=== PATIENT | male | born 1945 | race Asian ===

== ENCOUNTER 2017-12-23 14:50 | Emergency (ER) | payer OTHER, BC ==
[2017-12-23 15:04] VITALS: BP 129/73; PULSE 93; TEMP 98.3; BMI 23.8
[2017-12-23] MEDS ORDERED: SODIUM CHLORIDE 1,000 ML IV STA (16:46)
--- NOTE | 2017-12-23 16:56 | PDOC ---
History of Present Illness - General Chief Complaint: Pain Stated Complaint: PAIN Time Seen by Provider: 12/23/17 16:35 - History of Present Illness Initial Comments: 12/23/17 16:50 72 year old male with a hx of HTN, HLD, borderline DM, BPH presents for 8 days of constipation and nausea/vomiting. He states that his abdomen was very distended and tender for two days, at which point he self-induced vomiting, which helped alleviate some of his pain. He states that the pain and distention returned. He called his PCP who recommended milk of magnesia, which he reports makes him leak stool. States that he passes gas infrequently and has a lot of upper GI gas. He has little PO intake over the last week and states that he has been drinking water. Denies chest pain, SOB, nausea, vomiting, diarrhea, fevers , chills. Last Colonoscopy: never Allergies: none Surgeries: Appendectomy 1991 Smoking: never Alcohol: never PMD: Dr. Villagran Past History - Past Medical History Allergies/Adverse Reactions: Allergies Allergy/AdvReac Type Severity Reaction Status Date / Time No Known Allergies Allergy Verified 04/08/13 23:04 Home Medications: Ambulatory Orders No Home Medications 0 dose .ROUTE UTDICT 04/08/13 Aspirin Coated [Ecotrin -] 81 mg PO DAILY #0 tablet.ec 04/11/13 Azithromycin [Zithromax Tri-Jhon (3 DAYS) -] 500 mg PO DAILY #3 tablet 04/11/13 Docusate Sodium [Colace -] 100 mg PO DAILY #30 capsule 12/23/17 Ondansetron HCl [Zofran] 4 mg PO 14 PRN #14 tablet 12/23/17 HTN: Yes - Surgical History Appendectomy: Yes - Suicide/Smoking/Psychosocial Hx Smoking Status: No Smoking History: Never smoked Have you smoked in the past 12 months: No If you are a former smoker, when did you quit?: until 1991 Hx Alcohol Use: No Drug/Substance Use Hx: No Substance Use Type: None Review of Systems - Review of Systems Able to Perform ROS?: Yes Is the patient limited Moldovan proficient: Yes Constitutional: No: Chills, Fever Respiratory: No: Cough, Shortness of Breath *Physical Exam - Vital Signs Last Vital Signs Temp Pulse Resp BP Pulse Ox 98.3 F 93 H 16 129/73 99 12/23/17 14:55 12/23/17 14:55 12/23/17 14:55 12/23/17 14:55 12/23/17 14:55 ED Treatment Course - LABORATORY CBC & Chemistry Diagram: 12/23/17 17:00 12/23/17 17:00 - RADIOLOGY Radiology Studies Ordered: Category Date Time Status ABDOMEN & PELVIS CT WITH CONTR [CT] Stat CT Scan 12/23/17 16:49 Ordered Medical Decision Making - Medical Decision Making 12/23/17 17:31 72 year old male with a hx of HTN, HLD, borderline DM, BPH presents with 1 week of constipation, n/v suspect for acute SBO -cbc, cmp, ekg, INR -CT abdomen/pelvis -will re-evaluate 12/23/17 18:50 -labs wnl -If CT negative, will do PO trial and d/c home with referral to GI *DC/Admit/Observation/Transfer Diagnosis at time of Disposition: Nausea & vomiting - Discharge Dispostion Disposition: HOME Condition at time of disposition: Stable Decision to Admit order: No - Prescriptions Prescriptions: Docusate Sodium [Colace -] 100 mg PO DAILY #30 capsule Ondansetron HCl [Zofran] 4 mg PO 14 PRN #14 tablet PRN Reason: Nausea - Referrals Referrals: Heber Villagran MD [Primary Care Provider] - 1 week Jas Cortez MD [Staff Physician] - - Patient Instructions Additional Instructions: You were seen in the hospital for abdominal pain and distention Your blood tests were all normal Your CAT scan did not show evidence of bowel obstruction. Your CT scan did show an abnormality on your kidney. You need to follow up with your primary care physician for possible MRI or CT scan. Please make an appointment with your primary care physician within 1 week of discharge Please make an appointment with Dr. Cortez, a farmworker cranberry, within 1 week of discharge If your symptoms get worse or you experience more nausea, vomiting, or abdominal pain, please return to the emergency room immediately. - Post Discharge Activity
[2017-12-23 17:16] LABS: BASO % 0.8 % (0-2.0); EOS % 4.2 % (0-4.5); HEMATOCRIT 40.3 % (35.4-49); HEMOGLOBIN 13.6 GM/dL (11.7-16.9); LYMPH % 28.6 % (8-40); MCH 30.1 pg (25.7-33.7); MCHC 33.8 g/dl (32.0-35.9); MEAN CELL VOLUME 89.2 fl (80-96); MEAN PLT VOLUME 9.1 fl (7.5-11.1); MONO % 7.4 % (3.8-10.2); PLATELET COUNT 248 K/MM3 (134-434); RBC 4.52 M/mm3 (4.00-5.60); RDW 12.9 % (11.9-15.9); WHITE BLOOD COUNT 9.4 K/mm3 (4.0-10.0)
[2017-12-23 17:35] LABS: INR 1.03 (0.82-1.09); PROTHROMBIN TIME (PATIENT) 11.6 SEC (9.7-13.0)
[2017-12-23 17:45] LABS: ALBUMIN 4.1 g/dl (3.4-5.0); ANION GAP 7 (8-16); BILIRUBIN,TOTAL 0.5 mg/dL (0.2-1.0); BLOOD UREA NITROGEN 12 mg/dL (7-18); CALCIUM 8.6 mg/dL (8.5-10.1); CHLORIDE 106 mmol/L (98-107); CO2 28 mmol/L (21-32); CREATININE 1.3 mg/dL (0.7-1.3); GLUCOSE,RANDOM 99 mg/dL (74-106); POTASSIUM 4.3 mmol/L (3.5-5.1); SGOT/AST 26 U/L (15-37); SGPT/ALT 41 U/L (12-78); SODIUM 141 mmol/L (136-145)
[2017-12-23 17:46] LABS: TOT PROT 7.5 g/dl (6.4-8.2)
[2017-12-23 17:47] LABS: ALK PHOS 80 U/L (45-117)
--- NOTE | 2017-12-23 20:45 | PDOC ---
*Physical Exam - Vital Signs Last Vital Signs Temp Pulse Resp BP Pulse Ox 98.3 F 93 H 16 129/73 99 12/23/17 14:55 12/23/17 14:55 12/23/17 14:55 12/23/17 14:55 12/23/17 14:55 ED Treatment Course - LABORATORY CBC & Chemistry Diagram: 12/23/17 17:00 12/23/17 17:00 - ADDITIONAL ORDERS Additional order review: Laboratory Results 12/23/17 12/23/17 17:00 17:00 PT with INR 11.60 INR 1.03 Sodium 141 Potassium 4.3 Chloride 106 Carbon Dioxide 28 Anion Gap 7 L BUN 12 D Creatinine 1.3 Creat Clearance w eGFR 54.11 Random Glucose 99 Calcium 8.6 Total Bilirubin 0.5 D AST 26 D ALT 41 D Alkaline Phosphatase 80 D Total Protein 7.5 Albumin 4.1 12/23/17 17:00 RBC 4.52 MCV 89.2 MCHC 33.8 RDW 12.9 MPV 9.1 Neutrophils % 59.0 D Lymphocytes % 28.6 D Monocytes % 7.4 Eosinophils % 4.2 D Basophils % 0.8 - Medications Given in the ED: ED Medications Discontinued Medications Generic Name Dose Route Start Last Admin Trade Name Freq PRN Reason Stop Dose Admin Sodium Chloride 1,000 mls @ 1,000 mls/hr 12/23/17 16:46 12/23/17 17:05 Normal Saline - IV 12/23/17 17:45 1,000 mls/hr ASDIR STA Administration Medical Decision Making - Medical Decision Making 12/23/17 20:[address] Laguerre. Patient is 72 year old male with a hx of HTN , HLD, borderline DM, BPH presents for 8 days of constipation and nausea/ vomiting. Patient is now asking to eat. Labs reviewed, normal. EKG reviewed, shows normal sinus rhythm with 1st degree block (MT - 214). No st elevations/ depressions. Normal QTc. Normal axis. CT scan normal with possible mass on kidney. Patient informed of result, told to follow up with PCP and possible MRI/CT. Pending lactic acid ordered by primary team. 12/23/17 21:30 Lactic acid normal. Tolerating PO. Will discharge home. *DC/Admit/Observation/Transfer Diagnosis at time of Disposition: Nausea & vomiting - Discharge Dispostion Disposition: HOME Condition at time of disposition: Stable - Referrals Referrals: Heber Villagran MD [Primary Care Provider] - 1 week Jas Cortez MD [Staff Physician] - - Patient Instructions Additional Instructions: You were seen in the hospital for abdominal pain and distention Your blood tests were all normal Your CAT scan did not show evidence of bowel obstruction. Your CT scan did show an abnormality on your kidney. You need to follow up with your primary care physician for possible MRI or CT scan. Please make an appointment with your primary care physician within 1 week of discharge Please make an appointment with Dr. Cortez, a airdox fitter, within 1 week of discharge If your symptoms get worse or you experience more nausea, vomiting, or abdominal pain, please return to the emergency room immediately. - Post Discharge Activity
--- NOTE | 2017-12-24 08:49 | EKG ---
Test Reason : Blood Pressure : / mmHG Vent. Rate : 072 BPM Atrial Rate : 072 BPM P-R Int : 214 ms QRS Dur : 078 ms QT Int : 394 ms P-R-T Axes : 062 000 060 degrees QTc Int : 431 ms SINUS RHYTHM WITH 1ST DEGREE A-V BLOCK WHEN COMPARED WITH ECG OF 08-APR-2013 21:54, DE INTERVAL HAS INCREASED Confirmed by BILLIE MATOS MD ([id number]) on 12/24/2017 8:48:40 AM Referred By: Confirmed By:BILLIE MATOS MD
== END 2017-12-23 21:44 | disposition home or self-care (01) ==
LOC: JER 14:50
PROC: 3E0337Z Introduction of Electrolytic and Water Balance Substance into Peripheral Vein, Percutaneous Approach (ICD-10-PCS; principal; 2017-12-23)
DX: R10.84 Generalized abdominal pain (principal); R14.0 Abdominal distension (gaseous); E78.00 Pure hypercholesterolemia, unspecified; E78.5 Hyperlipidemia, unspecified; E11.9 Type 2 diabetes mellitus without complications; N40.0 Benign prostatic hyperplasia without lower urinary tract symptoms
CPT/HCPCS: 36415; 74176-TC; 80053; 83605; 85025; 85610; 93005; 93010; 99282-25; J7030

== ENCOUNTER 2019-03-15 07:04 | Day surgery (SDC) | payer OTHER, BC ==
[2019-03-14 13:37] VITALS: BMI 24.7
[2019-03-15 08:51] VITALS: TEMP 97.5
[2019-03-15 10:16] VITALS: BP 121/75; PULSE 66
--- NOTE | 2019-03-16 15:57 | PATH ---
Surgical Pathology Report Patient Name: CATRACHITA FRANKLIN [facility]. Rec. #: [id number] /Age/Gender: 1945 (Age: 73) / M Account: [id number] Location: [facility]-ENDOSCOPY Taken: 03/15/2019 Received: 03/15/2019 Reported: 03/16/2019 Physicians: Angel Ley M.D. Specimen(s) Received RECTAL POLYP Clinical History Screening colonoscopy Postoperative diagnosis: Small bowel diverticulosis, diverticulosis of colon, rectal polyp Final Diagnosis RECTAL POLYP, POLYPECTOMY: HYPERPLASTIC POLYP. Electronically Signed Caitlin Duncan M.D. Gross Description Received in formalin, labeled "rectal polyp" is a brito, irregular portion of soft tissue measuring 0.3 cm. in greatest dimension. The specimen is submitted in toto in one cassette. MLSZ/03/15/2019 sanml/03/15/2019
== END 2019-03-15 09:40 | disposition home or self-care (01) ==
LOC: JASU-ENDO 07:04
PROVIDERS: ATTEND Internal Medicine Gastroenterology
PROC: 0DBP8ZX Excision of Rectum, Via Natural or Artificial Opening Endoscopic, Diagnostic (ICD-10-PCS; principal; 2019-03-15 08:45)
DX: Z12.11 Encounter for screening for malignant neoplasm of colon (principal); K62.1 Rectal polyp; K57.30 Diverticulosis of large intestine without perforation or abscess without bleeding; K64.8 Other hemorrhoids; K55.20 Angiodysplasia of colon without hemorrhage; I10 Essential (primary) hypertension
CPT/HCPCS: 88305-TC

== ENCOUNTER 2021-07-31 04:27 | Day surgery (SDC) | payer OTHER, BC ==
[2021-07-29 13:08] VITALS: BMI 23.7
[2021-07-31 10:59] VITALS: TEMP 97.5
[2021-07-31 11:37] VITALS: BP 122/67; PULSE 65
== END 2021-07-31 11:55 | disposition home or self-care (01) ==
LOC: JASU-ENDO 04:27
PROVIDERS: ATTEND Internal Medicine Gastroenterology
PROC: 0DB78ZX Excision of Stomach, Pylorus, Via Natural or Artificial Opening Endoscopic, Diagnostic (ICD-10-PCS; principal; 2021-07-31 10:45)
DX: K29.50 Unspecified chronic gastritis without bleeding (principal); K31.819 Angiodysplasia of stomach and duodenum without bleeding; I10 Essential (primary) hypertension; R12 Heartburn
CPT/HCPCS: 88305-TC; 88342-TC